=== PATIENT | male | born 1955 | race Caucasian/White ===

== ENCOUNTER 2022-06-10 09:39 | Outpatient (REF) | payer MEDICARE, SELFPAY ==
[2022-06-10 14:48] LABS: Bilirubin Negative (Negative); Blood Negative (Negative); Clarity Clear (Clear); Glucose Negative (Negative); Ketones Negative (Negative); Leukocyte Esterase Negative (Negative); Nitrite Negative (Negative); Specific Gravity 1.025 (1.005-1.025); Urobilinogen 0.2 mg/dL (Up to 0.2)
[2022-06-10 14:49] LABS: HCT 47.7 % (40.0-50.0); HGB 16.3 g/dL (13.5-17.5); MCHC 34.2 % (32.0-36.0); MCV 82 fL (80-95); MPV 9.9 fL (8.0-11.0); Platelet Count 215 10^3/uL (130-400); RBC 5.82 10^6/uL (4.36-5.78); RDW 13.3 % (11.8-14.1); RDW-SD 39.4 fL; WBC 7.84 10^3/uL (4.4-10.8)
[2022-06-10 15:23] LABS: ALT 28 U/L (16-63); AST 27 U/L (15-37); Albumin 3.6 g/dL (3.4-5.0); Alkaline Phosphatase 56 U/L (46-116); Anion Gap 10.3 mmol/L (3-11); BUN 24 mg/dL (7-18); Bilirubin, Total 0.5 mg/dL (0.2-1.0); CO2 24.7 mmol/L (21.0-32.0); CREATININE 1.3 mg/dL (0.70-1.30); Calcium 9.2 mg/dL (8.5-10.1); Calculated LDL 143 mg/dL (<100); Chloride 105 mmol/L (98-107); Cholesterol 212 mg/dL (<200); Estimated GFR 60.96 (mL/min/1.73m2); Glucose 106 mg/dL (74-106); HDL Cholesterol 50 mg/dL (40-60); Potassium 4.3 mmol/L (3.5-5.1); Sodium 140 mmol/L (136-145); Total Protein 7.4 g/dL (6.4-8.2); Triglyceride 98 mg/dL (<150)
== END 2022-06-10 09:40 | disposition home or self-care (01) ==
LOC: NCHCN 09:39
PROVIDERS: Visit Provider Family Medicine
DX: N02.8 Recurrent and persistent hematuria with other morphologic changes (principal); Z00.00 Encounter for general adult medical examination without abnormal findings; Z13.1 Encounter for screening for diabetes mellitus; Z13.220 Encounter for screening for lipoid disorders; Z86.79 Personal history of other diseases of the circulatory system; K51.90 Ulcerative colitis, unspecified, without complications; H93.19 Tinnitus, unspecified ear
CPT/HCPCS: 80053; 80061; 85027; 81003

== ENCOUNTER 2023-11-01 20:25 | Outpatient (REF) | payer MEDICARE, SELFPAY ==
[2023-11-01 16:40] LABS: ALT 29 U/L (16-63); AST 37 U/L (15-37); Albumin 3.6 g/dL (3.4-5.0); Alkaline Phosphatase 54 U/L (46-116); Anion Gap 8.1 mmol/L (3-11); BUN 24 mg/dL (7-18); Bilirubin, Total 0.83 mg/dL (0.2-1.0); CO2 25.9 mmol/L (21.0-32.0); CREATININE 1.4 mg/dL (0.70-1.30); Calcium 9.7 mg/dL (8.5-10.1); Chloride 106 mmol/L (98-107); Estimated GFR 55.43 (mL/min/1.73m2); Glucose 83 mg/dL (74-106); Potassium 4.2 mmol/L (3.5-5.1); Sodium 140 mmol/L (136-145); Total Protein 7.5 g/dL (6.4-8.2); Uric Acid 7.1 mg/dL (3.5-7.2)
[2023-11-01 17:20] LABS: Calculated LDL 85 mg/dL (<100); Cholesterol 147 mg/dL (<200); HDL Cholesterol 50 mg/dL (40-60); Triglyceride 61 mg/dL (<150)
--- OUTSIDE RECORDS SUMMARY | 2023-11-01 20:29 | XMS_ITS | Clinical Summary ---
Author Organization [facility] Address [address] [place] [address] Care Team Providers Care Talent Acquisition Specialist Name Role Phone Iesha Crowley MD Primary Care Provider [phone] Allergies No known active allergies Medications Medication Sig Dispensed Refills Start Date End Date Status balsalazide disodium (BALSALAZIDE ORAL) Take 750 mg by mouth. 3 x 750 mg three times a day Active Active Problems No known active problems Social History Tobacco Use Types Packs/Day Years Used Date Smoking Tobacco: Unknown Tobacco Cessation:Counseling Given: Not Answered Sex and Gender Information Value Date Recorded Sex Assigned at Not on file Gender Identity Male 04/08/2022 14:08 EST Sexual Orientation Not on file Obstetrics History Last Filed Vital Signs Vital Sign Reading Time Taken Comments Blood Pressure 139/79 04/26/2022 0756 EDT Pulse 93 04/26/2022 0756 EDT Temperature - - Respiratory Rate - - Oxygen Saturation - - Inhaled Oxygen Concentration - - Weight - - Height - - Body Mass Index - - Plan of Treatment Health Maintenance Due Date Last Done Comments Hepatitis C Screen 1955 RSV Immunization ( o r 60+ Years) (1 - 1-dose 60+ series) 2017 Fall Risk Screening 2022 COVID-19 Vaccine (2022-24 season) 2022 Madonna FLORES, Slade Youngblood Personal/Family Self 1955 [address] [facility] [place] [address] Madonna FLORES, Slade Youngblood Personal/Family Self 1955 [address] [place] [address] Madonna FLORES, Slade Youngblood Personal/Family Self 1955 [address] [place] [address] Madonna III, Slade Youngblood Personal/Family Self 1955 [address] [facility] [place] [address] Care Teams Talent Acquisition Specialist Relationship Specialty Start Date End Date Iesha Crowley MD [address] [place] [address] PCP - General 04/08/22
--- OUTSIDE RECORDS SUMMARY | 2023-11-01 20:29 | XMS_ITS | Encounter Summary ---
Author Organization [facility] Address [address] [place] [address] Care Team Providers Care Waste Paper Hammermill Operator Name Role Phone Iesha Crowley MD Primary Care Provider [phone] Reason for Visit * Reason Onset Date Comments Follow-up 06/14/2023 Encounter Details Date Type Department Care Team (Late st Contact Info) Description 06/14/2023 Telephone [facility] Dermatology 5th Floor [address] [id number] Devon Nunes MD [address] [place] [address], [address] [place] [address] Follow-up Social History Tobacco Use Types Packs/Day Years Used Date Smoking Tobacco: Unknown Sex and Gender Information Value Date Recorded Sex Assigned at Not on file Gender Identity Male 04/08/2022 14:08 EST Sexual Orientation Not on file documented as of this encounter Miscellaneous Notes * Telephone Encounter - Rula Castro - 06/14/2023 0927 EDT [facility] missed on 06/02/23 to next available on 09/08/23. He did speak with the nurse on 03/21/23 and was aware of the message from Dr. Nunes. He is still asking if there's anything possibly for pain relief. Please call his land-line [phone] documented in this encounter Plan of Treatment Not on file documented as of this encounter Visit Diagnoses Not on filedocumented in this encounter Care Teams Waste Paper Hammermill Operator Relationship Specialty Start Date End Date Iesha Crowley MD [address] [place] [address] PCP - General 04/08/22 documented as of this encounter
--- OUTSIDE RECORDS SUMMARY | 2023-11-01 20:29 | XMS_ITS | Encounter Summary ---
Author Organization [facility] Address [address] [place] [address] Care Team Providers Care Manager Rail Name Role Phone Iesha Crowley MD Primary Care Provider [phone] Reason for Visit * Reason Comments Wound Check nose Encounter Details Date Type Department Care Team (Late st Contact Info) Description 05/07/2022 9:15 EDT Nurse Only [facility] Dermatology 5th Floor [facility] [address] [place] [address] Nursing Team, 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 Do not let the shower stream hit the wound directly. If you bathe in a tub, the bath should be brief. Pat wound dry. Apply a thin layer of vaseline to the wound. Cover wound with a Band-Aid or a non-stick gauze pad and secure with tape. Continue doing wound care until there is no more drainage. It is an old wives??? tale that a wound heals faster if it is exposed to air and allowed to dry out. The wound will heal faster and with a better cosmetic result if it is kept moist with ointment andcovered with a bandage. Do not let the wound dry out. If the procedure required sutures, the suture line will be dark pink at first and the edges of the wound will be reddened. This will lighten up day by day and will be less tender. The suture line mayalso be firm, especially on the lip/chin area and will also fade with time. It may take up to 6-12 months for redness and firmness to fade. Numbness in the surgical area is expected. It might take 12-18 months for the feeling to return to normal. During this time, sensations of itchiness, tingling, and occasional sharp pains might be noted. These feelings are normal and will subside once the nerves have completely healed. Begin to massage the area 6 weeks after surgery. Massaging the area will help the scar soften and fade quicker. To massage, apply pressure directly and firmly over the scar with the fingertips and move lengthwise along the scar or in a circular motion. Massage the area for up to 10 minutes several times a day. About 6-8 weeks after surgery it is not uncommon to see tender 'pimple-like' bumps along the scar. This is normal as the scar continues to mature and the stitches underneath the skin begin to dissolve. Do not pick or squeeze - this will resolve on its own. Should one break open producing a small amount of drainage, apply polysporin or bacitracin ointment a few times a day until it is completely healed. CONTACT THE OFFICE If the wound becomes increasingly red, warm to touch, increased pain, drainage with a foul odor, rapid swelling of the wound, and/or if you develop a fever or chills, please call our office immediately or . documented in this encounter Progress Notes * Karthikeyan Juan MA - 05/07/2022 0915 EDT Images from the original note were not included. WOUND ASSESSMENT CC: Chief Complaint Patient presents with ??? Wound Check nose Mr. 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 SUBJECTIVE: Patient reports that he is having a hard time with bandaging and knowing that the flap is healing well. OBJECTIVE: There were no vitals taken for this visit. Wound edges: well-approximated Wound Site: swollen, pink and no signs of infection Drainage: serosanguineous, crusted sanguinous drainage Flap site: well approximated and pink PLAN: Wound cleaned: normal saline and peroxide Dressing: vaseline dressing applied Culture obtained: No MD/PAIsmael consulted Yes. Dr. Nunes consulted and shown updated image. FOLLOW UP Patient advised to return to follow-up care on 05/13/2022 as planned or sooner if concern Wound care instructions given to patient Note: I was supervised by Devon Nunes MD who was present and immediately available in the office suite. 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
--- OUTSIDE RECORDS SUMMARY | 2023-11-01 20:29 | XMS_ITS | Encounter Summary ---
Author Organization [facility] Address [address] [place] [address] Care Team Providers Care Wad Printing Machine Operator Name Role Phone Iesha Crowley MD Primary Care Provider [phone] Reason for Visit * Reason Comments Mohs Consult [facility]CO MIS Nasal tip- N o blood thinner, no valve/joint replacement. Noticed spot 8 years ago- was frozen off.Came back around 4 years ago due to COVID was not seen. Few months ago saw changes in lesion. Ref by Dr.Gary Sahu * Consult (Routine) - Receiving Office to Obtain Authorization Specialty Diagnoses / Procedures Referred By Karely corral Referred To Contact Diagnoses Melanoma in situ of nose (HCC-CMS) MISC UNKNOWN [facility] Dermatology [address] [place] [address] Referral ID Status Reason Start Date Expiration Date Visits Requested Visits Authorized [id number] Receiving Office to Obtain Authorization Urgent/[facility] 1 1 Encounter Details Date Type Department Care Team (Late st Contact Info) Description 04/23/2022 13:30 EST Initial consult [facility] Dermatology 5th Floor [address] [address] Devon Nunes MD [address] [place] [address], [facility], [address] [place] [address] 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 MOHS EVALUATION NOTE Chief Complaint Patient presents with ??? Mohs Consult [facility]CO MIS Nasal tip- No blood thinner, no valve/joint replacement. Noticed spot 8 years ago- was frozen off.Came back around 4 years ago due to COVID was not seen. Few months ago saw changes in lesion.Ref by Dr.Gary Sahu Subjective: Slade Peacock III is a 66 y.o. year old male who presents for evaluation and treatment recommendations for skin cancer. The patient was referred to us by Dr. Manuel Sahu. He notes that it first appeared about 8 years ago and was previously treated with LN2. A few years ago, it started to come back and the patient was not seen for a bit due to COVID. Surgical Risk factors: Pacemaker/ICD: none Anticoagulants: none Total joint replacements/valves: none Allergies: Patient has No Known Allergies. Immunosuppression: none Smoking status: has no history on file for tobacco use. For full Medical, Surgical, Family, and Social histories as well as Review of Systems, Medications and Allergies please see those sections of this encounter in the electronic chart which I have personally reviewed. Objective: The following data was reviewed: external note(s) from referring provider and pathology report. Examination of the affected area revealed the following: ?? An approximately 1.2 cm x 0.6 cm well defined brown, patch located on the left nasal tip. 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 The diagnosis, etiology, prognosis and treatment options were reviewed. ?? Due to the need for a high cure rate and optimum functional and aesthetic outcome, I feel that Mohs surgery is indicated. The risks of Mohs surgery and potential reconstructive surgery, including:bleeding, infection, scarring, recurrence, injury to functionally or cosmetically important nerve structures and an unsatisfactory cosmetic result were reviewed. Mr. Madonna FLORES understands that following Mohs surgery an operative repair may be required and may involve substantial suturing. We have jointly planned to have me repair the wound at the day of surgery if needed. Discussed repair options include FTSG and nasolabial interpolation flap and pictures of the procedures shown to patient. Carlos Alberto delaney understands that it typically takes 4 to 6 months for wounds to heal before a decision can be made about the final cosmetic result and that in some cases a revision may be necessary to optimize theoutcome. The patient was given an opportunity to ask questions, and I believe that all of his questions were answered satisfactorily. The patient will be scheduled for surgery on April 26, 2022. Note: Discussed with patient that although the biopsy demonstrated melanoma in situ it was only a partial sample of a larger lesion and a deeper invasive component may be present. Patient advised theresidual melanocytic lesion would be sent to pathology for complete histologic evaluation for staging purposes. In the event a deeper invasive melanoma is identified then further excision, and / or testing may be recommended as directed by NCCN guidelines. and Discussed that reconstruction with a nasolabial interpolation flap may be needed for optimal cosmetic outcome. Drake French MD Attestation statement: I saw and examined the patient with the resident / fellow. I agree with the findings and plan of care documented in the resident's / fellow's note. 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 Medication Sig Dispensed Refills Start Date End Date balsalazide disodium (BALSALAZIDE ORAL) Take 750 mg by mouth. 3 x 750 mg three times a day added in this encounter Care Teams Wad Printing Machine Operator Relationship Specialty Start Date End Date Iesha Crowley MD [address] [place] [address] PCP - General 04/08/22 documented as of this encounter
--- OUTSIDE RECORDS SUMMARY | 2023-11-01 20:29 | XMS_ITS | Encounter Summary ---
Author Organization [facility] Address [address] [place] [address] Care Team Providers Care Casino Porter Name Role Phone Iesha Crowley MD Primary Care Provider [phone] Reason for Visit * Reason Onset Date Comments Wound Care 05/06/2022 Encounter Details Date Type Department Care Team (Late st Contact Info) Description 05/06/2022 Telephone [facility] Dermatology 3rd Floor [facility] [address] [place], [place] [id number] Devon Nunes MD [address] [facility], [address] [place] [address] Wound Care Social History Tobacco Use Types Packs/Day Years Used Date Smoking Tobacco: Unknown Sex and Gender Information Value Date Recorded Sex Assigned at Not on file Gender Identity Male 04/08/2022 14:08 EST Sexual Orientation Not on file documented as of this encounter Miscellaneous Notes * Telephone Encounter - Georgia Helm RN - 05/06/2022 0949 EDT S/P MOHS of melanoma in-situ left nasal tip with nasolabial interpolation flap 04/26/22 with Devon Nunes MD Patient reports he has been nervous about whether this surgery is healing the way it is supposed to. He reports the tip of his nose is light brown where the flap and the graft meet. No pain, increased swelling or redness. Patient scheduled for a wound check 05/08/22 with Nursing Team MOHS . MEGHAN AMAYA 05/06/2022 10:00 * Telephone Encounter - Rula Miller - 05/06/2022 0937 EDT Patient calling regarding post Mohs on 04/26/22 to remove MIS on nose. Patient is inquiring if it ishealing properly. Patient reports a graft was used. Please advise. documented in this encounter Plan of Treatment Not on file documented as of this encounter Visit Diagnoses Not on filedocumented in this encounter Care Teams Casino Porter Relationship Specialty Start Date End Date Iesha Crowley MD [address] [place] [address] PCP - General 04/08/22 documented as of this encounter
--- OUTSIDE RECORDS SUMMARY | 2023-11-01 20:29 | XMS_ITS | Encounter Summary ---
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 You may shower or bathe after 24 hours. Remove the bandage and replace it after the showering (see below). DISCOMFORT: Expect discomfort. Take acetaminophen (for example, TylenolTM) as directed. If this does not provide sufficient relief, take ibuprofen (AdvilTM), up to 600 mg every 8 hours). You may takeboth of these together or alternate them. We do not routinely prescribe narcotic pain medications. If pain is severe and not relieved by the above measures, please call the office. BLEEDING: Some blood seeping into the bandage is NORMAL. If the bleeding soaks through the dressing, remove the dressing, and apply firm, steady pressure with a moist clean wash cloth for fifteen minutes. If the bleeding stops, redress the wound. If not, call our office. ACTIVITY: No strenuous activity for the first 48 hours after surgery. Keep your head elevated. APPEARANCE: Swelling and bruising are normal. Some redness is normal, but the wound should not be red, hot and tender. If the wound rapidly swells up or becomes increasingly inflamed, warm, or drainspus, please call our office. WOUND CARE: Change the dressing daily and/or when it becomes wet. Wash hands with soap and water and clean the wound with soap and warm water. You may use 3% hydrogen peroxide and a cotton swab to loosen and remove the crusting from a wound with stitches. Apply a thin layer of sterile petroleum jelly over the wound. Cover with Telfa or similar non-stick dressing or bandage Tape in place with Hypafix or paper tape Mild tenderness, pinpoint bleeding and a thin mucous-like discharge are normal. Keep all sutured wounds covered daily for a full 7 days. Open wounds will need to be covered for much longer. If you have sutures that require removal, you will receive specific instructions regarding when andwhere to have them removed. If you have dissolving sutures they will fall apart and be gone in 10-14 days. OPEN WOUND HEALING (Wound without sutures): If your wound was left open to heal on its own, approximately one week after surgery a pink/red halo will form around the outside of the wound; this is newskin. The center of the wound will appear yellowish white and produce some drainage. The pink halo will slowly migrate toward the center of the wound until the wound is covered with new shiny pink skin. There will be a mucus-like drainage on the dressing and there will be no more drainage when the wound is completely healed. WHEN TO CONTACT YOUR PHYSICIAN: Contact you physician if your wound becomes increasingly sore, tender, red, or warm, or if the surgery site rapidly swells. Please call our office [phone] or if you have any questions or concerns. documented in this encounter Progress Notes * Devon Nunes MD - 05/18/2022 1400 EDT Images from the original note were not included. FLAP TAKEDOWN PROCEDURE NOTE PATIENT INFORMATION: Slade Peacock III : MRN: [id number] SURGEON: Devon Nunes MD TAXICAB STARTER: Angelika Stokes PA-C Preoperative Diagnosis: Mature Pedicle Flap Preoperative Procedure: Flap Division and Inset Mr. Madonna FLORES presents for a staged flap takedown procedure related to the interpolated nasolabial flap inset procedure performed on 04/26/2022. The indication, risks, benefits and alternatives to this procedure were provided in writing and were discussed in detail with the patient and all questions were answered. The patient had no contraindications to surgery with local anesthesia. Informed consent was obtained in writing. PROCEDURE Patient position: supine Anesthesia: 1% lidocaine with epinephrine 1:100,000 local infiltration Prep: Povodine Iodine The patient was brought to the operative suite. Vital signs were obtained & placed in the chart. The patient was placed in the recumbent position on the operating table. The pedicle flap extending from the cheek to the nose was identified and cleansed with Povidine. The flap was noted to be fully viable without evidence of infection. Sterile drapes were applied. Flap viability was confirmed by capillary refill. The flap was divided proximally and distally with a #15 scalpel blade. The flap was then thinned to the superficial subcutis by sharp excision at both the donor and recipient sites, and all accumulated granulation tissue was completely removed. The proximal stump was trimmed to si ze and inset slightly. The flap was sutured flush with the surrounding skin using 6.0 Monocryl (poliglecaprone 25) buried interrupted sutures. The epidermis was then approximated with 6.0 Prolene (polypropylene). The wound edges were cleansed with peroxide and dressed with petrolatum, a non-adherent gauze pad and Hypafix?? tape. Verbal and written wound care instructions were given. The patient tolerated the procedure well and left the operating suite in excellent condition. Final Diagnosis: Mature Pedicle Flap Final Procedure: Pedicle Flap Division and Inset Blood Loss: minimal Operative Time: 30 minutes Complications: None Note: None Follow up: Patient will return for follow up in approximately 1 week for suture removal then Mohs follow up in three months. The attending physician performed the procedure. 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
--- OUTSIDE RECORDS SUMMARY | 2023-11-01 20:29 | XMS_ITS | Encounter Summary ---
Author Organization [facility] Address [address] [place] [address] Care Team Providers Care Foot Cutter Name Role Phone Iesha Crowley MD Primary Care Provider [phone] Reason for Visit * Reason Onset Date Comments Appointment Related 06/17/2022 Encounter Details Date Type Department Care Team (Late st Contact Info) Description 06/17/2022 Telephone [facility] Dermatology 5th Floor [facility] [address], [place] [address] Devon Nunes MD [address] [facility], [address] 5 [place] [address] Appointment Related Social History Tobacco Use Types Packs/Day Years Used Date Smoking Tobacco: Unknown Sex and Gender Information Value Date Recorded Sex Assigned at Not on file Gender Identity Male 04/08/2022 14:08 EST Sexual Orientation Not on file documented as of this encounter Miscellaneous Notes * Telephone Encounter - Karthikeyan Juan MA - 06/17/2022 0936 EDT Called and spoke to pt- checking in to see how he was healing and to schedule a 3 month wwith . Pt stated he was feeling some tightness and tingling still in the repair site. Informed pt that healing process can take up to 12-18 months. Tightness can occur - did recommend massaging the area to help breakdown/soften scar tissue. In addition informed pt that tingling, can come and go but will get better as area continues to heal. Pt is scheuled for follow-up in 09/02/22 @ 8 am KARTHIKEYAN JUAN MA 06/17/2022 9:38 documented in this encounter Plan of Treatment Not on file documented as of this encounter Visit Diagnoses Not on filedocumented in this encounter Care Teams Foot Cutter Relationship Specialty Start Date End Date Iesha Crowley MD [address] [place] [address] PCP - General 04/08/22 documented as of this encounter
--- OUTSIDE RECORDS SUMMARY | 2023-11-01 20:29 | XMS_ITS | Continuity of Care Document ---
Author Organization [facility] Address [address] [place] [address] Assessment No assessment recorded. Plan of Treatment Reminders Order Date Submit Date Provider Last Modified By Organization Details Last Modified Time Details Appointments Nurse Visit 20 2023 07:30A M Not available Not available Not available Medicare Wellness 40 (Subs) 2023 02:00P M Not available Not available Not available Lab lipid panel, serum [address] [facility] (Registration ), [address] [place] [address] [place], [address], 11/01/2023 14:56:22 CMP, serum or plasma 2023 024 [facility] (Registration ), [address] [place] [address] [place], [address], 11/01/2023 16:44:50 uric acid, serum or plasma [address] [facility] (Registration ), [address] [place] [address] [place], [address], 11/01/2023 14:56:39 Referral None recorded. Procedures None recorded. Surgeries None recorded. Imaging None recorded. Medication Orders None recorded. Patient TargetsNo targets recorded. Patient InstructionsNo instructions recorded. 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 Not Available [facility] 3 05:15:32 History of cardiova scular disease 688183162 Active 2022 Problem Code: Z86.79; Problem Code Type: ICD-10; Not Available [facility] 3 05:15:32 Right bundle branch block 86239001 Active 2022 Problem Code: I45.10; Problem Code Type: ICD-10; Not Available [facility] 3 05:15:32 At risk - finding 196639258 Active 2022 Problem Code: Z91.89; Problem Code Type: ICD-10; Not Available [facility] 3 05:15:32 Internal hordeolu m 026000028 Active 2022 Problem Code: H00.029; Problem Code Type: ICD-10; Not Available [facility] 3 05:15:32 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 21453519 Active 2022 Problem Code: C43.31; Problem Code Type: ICD-10; Not Available [facility] 3 05:15:33 Hyperlip idemia screenin g Completed 202208/10/2022 Problem Code: Z13.220; Problem Code Type: ICD-10; Not Available [facility] 3 05:15:33 Diabetes mellitus screenin g Completed 202206/11/2022 Problem Code: Z13.1; Problem Code Type: ICD-10; Not Available [facility] 3 05:15:33 Tinnitus 82649604 Active 2022 Problem Code: H93.19; Problem Code Type: ICD-10; Not Available [facility] 3 05:15:33 Ulcerati ve colitis 73965792 Active 2022 Problem Code: K51.90; Problem Code Type: ICD-10; Not Available [facility] 3 05:15:33 Adult health examinat ion Active 2022 Problem Code: Z00.00; Problem Code Type: ICD-10; Not Available [facility] 3 05:15:33 Hypercho lesterol emia 20410902 Active [address], [facility] [address] , [facility] 4 16:57:04 Chronic kidney disease stage 3A 272534799 Active [address], [facility] [address] , [facility] 4 16:58:20 Basal cell carcinom a of skin 199002282 Active 2023 [facility] [address], [facility] [address] , [facility] 4 13:40:06 Problem Notes None recorded. Medical Equipment None Reported. Allergies Allergen ID Allergen Name Allergen Category Reaction Reaction Severity Criticality Documentation Date Start Date Code Code System Note Provider Name and Address Organization Details Recorded Time fentanyl medicatio n nausea moderate Not available 12/24/20222022 4337 RxNorm nause a and vomit ing Aller gyRea ction : 'naus ea and vomit ing'; Aller gyCod e: '2451 34'; Aller gyNam e: 'FENT ANYL' ; Aller gyCon ceptT ype: 'RX Norm' ; Not Available [facility] 3 16:11:34 Medications Name Sig Start Date Stop Date Status Note LastModified by Organization Details LastModified Time sildenafil 50 mg tablet Take 1 TO 2 tabletS by mouth once DAILY as needed prior to intercour se active Not Available Not Available No t Available fluorouraci l 5 % topical cream active Not Available Not Available Not Available amoxicillin 500 mg tablet active Not Available Not Available Not Available balsalazide 750 mg capsule TAKE THREE CAPSULES BY MOUTH THREE TIMES A DAY active Not Available Not Available No t Available tobramycin 0.3 %-dexametha sone 0.1 % eye drops,suspe nsion Apply 1 drop into both eyes three times a day for 5-7 days 06/01 completed Not Available Not Available Not Available rosuvastati n 5 mg tablet TAKE ONE TABLET BY MOUTH EVERY DAY active Not Available Not Available No t Available Vitals None Recorded Social History None recorded. Functional Status None recorded. Mental Status None recorded. Family History Nothing Reported Notes:*Problem: Father: mare le, COPD, OA knees, Afib Mother: hip fracture 2020 uses walker, generalize OA Sister1: OA, shoulder replacement surgery Sister2: generalized OA 1Son: healthy, no children Medical History No medical history recorded. Immunizations Vaccine Type Date Status Provider Name and Address Organization Details Recorded Time Pneumococcal conjugate PCV20, polysaccharide ESM693 conjugate, adjuvant, PF 07/05/2023 completed MD [address], [facility] [id number] [place] [address] 07/05/2023 16:57:03 Td (adult), 2 Lf tetanus toxoid, preservative free, adsorbed 07/05/2023 completed MD [address], [facility] [phone] [place] [address] 07/05/2023 16:57:03 COVID-19, mRNA, LNP-S, PF, 30 mcg/0.3 mL dose 04/15/2020 completed Not Available [facility] 12/24/2022 04:04:49 COVID-19, mRNA, LNP-S, PF, 30 mcg/0.3 mL dose 05/09/2020 completed Not Available [facility] 12/24/2022 04:04:50 Past Encounters Encounter ID Performer Location Encounter Start Date Encounter Closed Date Diagnosis/Indication Diagnosis SNOMED-CT Code Diagnosis ICD10 Code [id number] Shanel Ricks LPN [address] [address] 11/01/2023 07:19:14 11/01/2023 08:17:25 Hypercholesterolemia 96648224 E78.00 Chronic ki dney disease stage 3A 563950006 N18.31 History of gout 65921824 4 Z87.39 Health Concerns Section Related Observation LastModified by Organization Detai ls LastModified Time None Recorded Concern Status LastModified by Organization Details LastModified Time None Recorded Payers Encounter Date Sequence Insurance Name Policy Number Policy Faust Covered Member ID Faust Member ID Guarantor Name 11/01/2023 1 [place] [employer] Slade Peacock [id number] 1 Slade Peacock 11/01/2023 2 [employer] - [facility] [employer] - PLAN F (MEDICARE SUPPLEMENT) Slade Peacock [id number] Slade Peacock
--- OUTSIDE RECORDS SUMMARY | 2023-11-01 20:29 | XMS_ITS | Encounter Summary ---
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); Visit for suture removal Social History Tobacco Use Types Packs/Day Years Used Date Smoking Tobacco: Unknown Tobacco Cessation:Counseling Given: Not Answered Sex and Gender Information Value Date Recorded Sex Assigned at Not on file Gender Identity Male 04/08/2022 14:08 EST Sexual Orientation Not on file documented as of this encounter Patient Instructions * Patient Instructions* Karthikeyan Juan MA - 05/03/2022 8:45 EDT [facility] DEPARTMENT OF DERMATOLOGY Wound Care Instructions [...] Progress Notes * Karthikeyan Juan MA - 05/03/2022 4835 EDT SUTURE REMOVAL NOTE CC: SUTURE REMOVAL Mr. 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 SUBJECTIVE: Patient reports tender to touch and itching OBJECTIVE: There were no vitals taken for this visit. Wound edges: well-approximated Wound Site: sloughing, pink and no signs of infection Drainage: serosanguineous Flap site: well approximated and pink PLAN: Wound cleansed from center outward with chlorohexidine (hibiclens, chloraprep) Sutures: all sutures removed Dressing: mupirocin dressing applied FOLLOW UP Patient advised to return to follow-up care on 05/18/2022 as planned or sooner if concern Post suture removal wound care instructions given to patient Note: I was supervised by Devon Nunes MD who was present and immediately available in the office suite. 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
--- OUTSIDE RECORDS SUMMARY | 2023-11-01 20:29 | XMS_ITS | Encounter Summary ---
Author Organization [facility] Address [address] [place] [address] Care Team Providers Care Paint Roller Covermaker Name Role Phone Iesha Crowley MD Primary Care Provider [phone] Reason for Visit * Reason Onset Date Comments Appointment Related 04/28/2022 Encounter Details Date Type Department Care Team (Late st Contact Info) Description 04/28/2022 Telephone [facility] Dermatology 3rd Floor [facility] [address] [place], [place] [address] Devon Nunes MD [address] [facility], [address] [place] [address] Appointment Related Social History Tobacco Use Types Packs/Day Years Used Date Smoking Tobacco: Unknown Sex and Gender Information Value Date Recorded Sex Assigned at Not on file Gender Identity Male 04/08/2022 14:08 EST Sexual Orientation Not on file documented as of this encounter Miscellaneous Notes * Telephone Encounter - George Delcid RN - 04/28/2022 1048 EDT S/P melanoma in situ of the left nasal tip with nasolabial interpolation flap on 04/23/22 by Devon Nunes MD and Rosas Muir MD. Patient states that the flap has progressed from appearing small and trim to red and swollen. No increased pain, just some discomfort. No drainage. No fever or chills. States that wound does not appear infected. Patient does not have MyChart and states that he would struggle to download MyChart and send a photo. He is unable to make an appointment today due to poor driving conditions - he is not currently inthe area. Scheduled for a wound check with the nursing team tomorrow 04/29 @ 0915. GEORGE DELCID RN 04/28/2022 10:56 * Telephone Encounter - Tami Lund - 04/28/2022 1045 EDT Patient is calling regarding his skin flap surgery on 04/26/22. Patient states it looked smaller when he left, and now it looks big and red. Patient would just like to know if this is normal. Please advise. documented in this encounter Plan of Treatment Not on file documented as of this encounter Visit Diagnoses Not on filedocumented in this encounter Care Teams Paint Roller Covermaker Relationship Specialty Start Date End Date Iesha Crowley MD [address] [place] [address] PCP - General 04/08/22 documented as of this encounter
--- OUTSIDE RECORDS SUMMARY | 2023-11-01 20:29 | XMS_ITS | Encounter Summary ---
Author Organization [facility] Address [address] [place] [address] Care Team Providers Care Photogrammetric Stereo Compiler Name Role Phone Iesha Crowley MD Primary Care Provider [phone] Reason for Visit * Reason Comments Wound Check nose Encounter Details Date Type Department Care Team (Late st Contact Info) Description 05/13/2022 8:45 EDT Nurse Only [facility] Dermatology 5th Floor [facility] [address] [place] [address] Nursing Team, [facility] Dermatology Mohs Melanoma in situ of nose [...] * Patient Instructions* Karthikeyan Juan MA - 05/13/2022 8:45 EDT [facility] DEPARTMENT OF DERMATOLOGY Wound Care Instructions [...] Progress Notes * Karthikeyan Juan MA - 05/13/2022 8726 EDT Images from the original note were [...] advised to return to follow-up care on 05/17/2022 as planned or sooner if concern Wound care instructions given to patient Note: I was supervised by Devon Nunes MD who was present and immediately available in the office suite. 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
--- OUTSIDE RECORDS SUMMARY | 2023-11-01 20:29 | XMS_ITS | Encounter Summary ---
Author Organization [facility] Address [address] [place] [address] Care Team Providers Care Financial Recording Clerk Name Role Phone Iesha Crowley MD Primary Care Provider [phone] Reason for Visit * Reason Comments Follow-up 3 month f/u MIS flap take down. Pt states some discomfort where root of flap was. Some tightness and aching in that area. Encounter Details Date Type Department Care Team (Late st Contact Info) Description 09/02/2022 8:00 EDT Office Visit [facility] Dermatology 5th Floor [address] [id number] Devon Nunes MD 111 [facility], [address] [place] [phone] History of melanoma in situ (Primary Dx) Social History Tobacco Use Types Packs/Day Years Used Date Smoking Tobacco: Unknown Tobacco Cessation:Counseling Given: Not Answered Sex and Gender Information Value Date Recorded Sex Assigned at Not on file Gender Identity Male 04/08/2022 14:08 EST Sexual Orientation Not on file documented as of this encounter Progress Notes * Devon Nunes MD - 09/02/2022 0800 EDT Mohs Follow Up Note Chief Complaint Patient presents with ??? Follow-up 3 month f/u MIS flap take down. Pt states some discomfort where root of flap was. Some tightness and aching in that area. 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 ?? He notes his nose has healed well and he is pleased. ?? He has no additional concerns he wishes to discuss today. For full Medical, Surgical, Family, and Social histories as well as Review of Systems, Medications and Allergies please see those sections of this encounter in the electronic chart which I have personally reviewed. OBJECTIVE FOCUSED SKIN EXAM: A focused cutaneous examination of the nose and left cheek is performed. The exam was notable for the following findings: ?? Well healed scar on the left nasal tip and medial cheek without nodularity, ulceration or other concerning signs of recurrence. ASSESSMENT ??? Well healed with no evidence of recurrence following Mohs surgery for melanoma in situ (MIS) onthe left nasal tip. PLAN ?? SUN PROTECTION AND SELF EXAMS: Patient advised that individuals with a history of skin cancer have an increased risk for development of new skin cancers. Recommended regular self skin examinationsand to call our office for any new, changing or ugly duckling skin lesions prior to next appointment. The importance of sun avoidance and sun protection with clothing and broad spectrum sunscreens (SPF 30 or above) for primary prevention of new skin cancers reviewed. ?? Patient will return for a skin check next spring. He know to braydon for a sooner appointment shouldhe notice any new or chenging skin lesons of concern.. Devon Nunes MD 09/02/2022 8:45 documented in this encounter Plan of Treatment Not on file documented as of this encounter Visit Diagnoses Diagnosis History of melanoma in situ- Primary Personal history of malignant melanoma of skin documented in this encounter Care Teams Financial Recording Clerk Relationship Specialty Start Date End Date Iesha Crowley MD [address] [place] [address] PCP - General 04/08/22 documented as of this encounter
--- OUTSIDE RECORDS SUMMARY | 2023-11-01 20:29 | XMS_ITS | Referral Summary ---
Author Organization [facility] Address [address] [place] [address] Care Team Providers Care Digital Intern Name Role Phone Iesha Crowley MD Primary Care Provider [phone] Allergies No known active allergies Medications Medication [...] 14:08 EST Sexual Orientation Not on file Last Filed Vital Signs Vital Sign Reading Time Taken Comments Blood Pressure 139/79 04/26/2022 0756 EDT Pulse 93 04/26/2022 0756 EDT Temperature - - Respiratory Rate - - Oxygen Saturation - - Inhaled Oxygen Concentration - - Weight - - Height - - Body Mass Index - - Plan of Treatment Not on file Madonna III, Slade Youngblood Personal/Family Self 1955 [address] [facility] [place] [address] Madonna III, Slade Youngblood Personal/Family Self 1955 [address] [facility] [place] [address] Madonna III, Slade Youngblood Personal/Family Self 1955 [address] [place] [address] Peacock III, Slade Youngblood Personal/Family Self 1955 [address] [place] [address] Care Teams Digital Intern Relationship Specialty Start Date End Date Iesha Crowley MD [address] [place] [address] PCP - General 04/08/22
--- OUTSIDE RECORDS SUMMARY | 2023-11-01 20:29 | XMS_ITS | Encounter Summary ---
Author Organization [facility] Address [address] [place] [address] Care Team Providers Care Feedlot Manager Name Role Phone Iesha Crowley MD Primary Care Provider [phone] Reason for Visit * Reason Onset Date Comments Appointment Related 05/31/2022 Encounter Details Date Type Department Care Team (Late st Contact Info) Description 05/31/2022 Telephone [facility] Dermatology 3rd Floor [facility] [address] [place], [place] [phone] Devon Nunes MD 111 [facility], [address] [place] [address] Appointment Related Social History Tobacco Use Types Packs/Day Years Used Date Smoking Tobacco: Unknown Sex and Gender Information Value Date Recorded Sex Assigned at Not on file Gender Identity Male 04/08/2022 14:08 EST Sexual Orientation Not on file documented as of this encounter Miscellaneous Notes * Telephone Encounter - George Delcid RN - 06/08/2022 0853 EDT Called and spoke with Bridgette. Patient had given permission for Dermatology staff to relay a messageto Bridgette. Advised that, per Devon Nunes MD: Nothing more to add really than reassurance. Time is polanco. Usually takes 4 to 6 months for everything to settle out. Massage can help and probably more importantly it will give him a sense that he iscontributing to his recovery. Bridgette asked about use of Vitamin E oil for reducing the appearance of a scar. Advised that the dermatologists generally state that while the effectiveness of Vitamin E oil in fading a scar has not been strongly proven, it is not harmful. If he has it on hand, he may apply it to the scar, such as during massage. Patient may call the dermatology office back with any further questions. GEORGE DELCID RN 06/08/2022 8:57 * Telephone Encounter - George Delcid RN - 06/08/2022 0811 EDT Mr.??Slade Peacock III??is status post MOHS of melanoma in situ on the left nasal tip with a nasolabial interpolation flap repair on 04/26/2022 by Devon Nunes MD. He is also status post flap takedown of a mature pedicle flap on 05/18/22 by Devon Nunes MD and Angelika Stokes PA-C. Patient called with concerns and questions related to tightness and discomfort just to the left of the scar. Reports that the site is coming along very well from a cosmetic standpoint. Endorses a bit of redness. Scar is firm but not tender to touch. No swelling. No bruising. No drainage. No feveror chills. He is not concerned about infection. He cannot send a picture through [employer] Advised that, although difficult to assess without a photo, it is likely that tightness and discomfort will gradually resolve as the skin heals and massage is performed beginning 6 weeks post-op. Patient re-educated on massage instructions. It is possible that absorbable sutures below the surface of the skin are contributing to this tight sensation. He should monitor the site over the next week or so and report ongoing concerns to Dermatology after that point. Will consult Devon Nunes MD and Angelika Stokes PA-C for additional recommendations. GEORGE DELCID RN 06/08/2022 8:28 * Telephone Encounter - Tami Lund - 06/08/2022 0809 EDT Patient is calling regarding his nurse visit two weeks ago. Patient states that he has a couple questions he would like to ask. Please advise. * Telephone Encounter - Anya Barrera - 05/31/2022 0918 EDT Patient called looking for a 3 month f/u visit with from 05/18/22 appt.. I could not find anything. Please advise. documented in this encounter Plan of Treatment Not on file documented as of this encounter Visit Diagnoses Not on filedocumented in this encounter Care Teams Feedlot Manager Relationship Specialty Start Date End Date Iesha Crowley MD [address] [place] [address] PCP - General 04/08/22 documented as of this encounter
--- OUTSIDE RECORDS SUMMARY | 2023-11-01 20:29 | XMS_ITS | Encounter Summary ---
Author Organization [facility] Address [address] [place] [address] Care Team Providers Care Cotton Program Technician Name Role Phone Iesha Crowley MD Primary Care Provider [phone] Reason for Visit * Reason Comments Suture / Staple Removal nose Encounter Details Date Type Department Care Team (Late st Contact Info) Description 05/25/2022 8:45 EDT Nurse Only [facility] 5th Floor [facility] [address] [place] [address] Nursing Team, [facility] Dermatology Mohs Melanoma in situ of [...] this encounter Patient Instructions * Patient Instructions* George Delcid RN - 05/25/2022 8:45 EDT DERMATOLOGY - WOUND CARE INSTRUCTIONS-Steri Strips Wash wound daily with soap and water Pat Dry Do not apply any oils, lotions or sunscreens to the area while the steri strips are on Once these fall off you may resume your normal skin care routine If the procedure requires sutures, the suture line will be dark pink at first and the edges of the wound will be reddened. This will lighten up day by day and will be less tender. Massaging the area will help the scar soften and fade quicker. Begin to massage the area 6 weeks after surgery. To massage apply pressure directly and firmly over the scar with the fingertips and move lengthwise along the scar. Massage the area for a few minutes several times a day. About 6-8 weeks after surgery it is not uncommon to see tender 'pimple-like' bumps along the scar. This is normal as the scar continues to mature and the stitches underneath the skin begin to dissolve. Do not pick or squeeze-- this will resolve on its own. Should one break open producing a small amount of drainage, apply polysporin or bacitracin ointment a few times a day until it is completely healed. Numbness in the surgical area is expected. It might take 12-18 months for the feeling to return to normal. During this time sensations of itchiness, tingling and occasional sharp pains might be noted. These feelings are normal and will subside once the nerves have completely healed The Skin Cancer Foundation recommends using a broad spectrum (UVA/UVB) sunscreen with an SPF of 15 or higher every day. For extended outdoor activity, use a water-resistant, broad spectrum (UVA/UVB) sunscreen with an SPF of 30 or higher. CONTACT THE OFFICE: If the wound becomes increasingly red, warm to touch, increased pain, drainage with a foul odor, rapid swelling of the wound and/or if you develop a fever or chills, please call our office immediately or . Recommendations for Sun Protection Ultraviolet (UV) radiation is a known carcinogen (cancer-causing agent) and is primarily responsible for most skin cancers, including Basal Cell Carcinoma, Squamous Cell Carcinoma, and many Melanomas. UV radiation also rapidly ages the skin, leading to wrinkles, uneven color, and poor texture. Minimizing UV exposure has been shown in multiple studies to decrease the likelihood of developing cancers and pre-cancers of the skin, as well as improve overall appearance. To minimize UV exposure: 1) Avoid exposure to sunlight during the middle of the day (10am to 4pm). Seek shade when outside during these hours. Limit outdoor activities to release coordinator and/or evening hours when the sunlight is less intense. Remember that UV is reflected from water and snow, and can pass through window glass. It is still possible to get burned during cloudy weather and in the winter months. You can check the forecast for the UV Index in your area at most weather sites online. If the UV index is 3 or higher, sun protection/avoidance is recommended. 2) Wear protective clothing. Hats with wide brims that cover the ears and neck, sunglasses (sun exposure increases your risk for cataracts), long-sleeved shirts, long pants, and closed-top shoes offer good protection. Many makers of outdoor clothing test their fabrics for UV Protection Factor (UPF), which is a guide to the level of protection a particular item of clothing should provide. In general, loose weaves (Cotton) and microsoft dynamics ax consultant-colored fabrics offer less protection than tighter weaves or darker/thicker fabrics. It is possible to get a sunburn through clothing, especially if it is wet. 3) Use sunscreen on exposed areas. Choose a sunscreen that has a Sun Protection Factor (SPF) of 30+or higher. Apply the sunscreen generously (so much that you can barely rub it in) to exposed areas 30 minutes before sun exposure. Reapply every 2-3 hours, especially if you are in water or sweating.If you tend to break out from sunscreen, choose a sunscreen designed for Sensitive Skin and/or one with physical blocking agents, such as Zinc Oxide and Titanium Dioxide. For vigorous activity, look for Sport sunscreens, which are resistant to sweating. 4) Avoid artificial sources of UV, such as tanning beds or sun lamps. The UV emitted by these devices is just as damaging, if not more so, than natural sunlight. There is a well-documented increase in the incidence of all common skin cancers in frequent tanning bed users. Other considerations: Vitamin D: Exposure to UV light is one of the ways your body gets Vitamin D, a necessary nutrient. Other sources are from the diet and/or dietary supplements. If you are actively avoiding the sun, itmay be advisable to discuss Vitamin D supplementation with your Primary Care Provider (PCP). In general, taking a supplement of 1,000 to 2,000 International Units (IU) of Vitamin D3 is safe and well-tolerated in individuals who get minimal sun exposure and have normal kidney function. However, moreor less Vitamin D may be recommended, depending on your individual needs, and the use of such supplements should be discussed with your PCP. For more information about sun protection and skin cancer: www.skincancer.org Recommended sunscreens: Chemical sunscreen Neutrogena Ultra Sheer Dry Touch (helioplex) Aveeno (same sunscreen as in Neutrogena) Coppertone Sport La Hina-Posay Anthelios (mexoryl -good UVA and UVB) Vichy (mexoryl - available in Mandeep) Gel formulations good for hair bearing skin Bullfrog Alcohol based - goes on quickly and good for skin with hair Solbar Physical sunblock good for sensitive skin (titanium dioxide and zinc oxide chemical/fragrance free) Blue Lizard sensitive COTZ TiZO (comes in tinted form) Neutrogena pure and free baby or sensitive Recommended sun protection clothing websites www.sunprecautions.com www.coolibar.[employer] www.Geosho www.NumberPicture.[employer] documented in this encounter Progress Notes * George Delcid RN - 05/25/2022 0845 EDT SUTURE REMOVAL NOTE CC: SUTURE REMOVAL Mr. 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 He is also status post flap takedownof a mature pedicle flap on 05/18/22 by Devon Nunes MD and Angelika Stokes PA-C. SUBJECTIVE: Patient reports tender to touch. OBJECTIVE: There were no vitals taken for this visit. Wound edges: well-approximated Wound Site: crusting, pink and no signs of infection Drainage: none - brown and red crusting Beach site: well approximated and pink Flap site: well approximated and pink PLAN: Wound cleansed from center outward with normal saline and chlorohexidine (hibiclens, chloraprep) Sutures: all sutures removed Dressing: steristrips applied to slightly open skin and remaining healed skin left open to air FOLLOW UP Patient advised at surgery appointment on 05/18/22 to return for a MOHS follow-up in [address] Nunes' chief medical technologist regarding scheduling. Post suture removal wound care instructions given to patient Note: I was supervised by Devon Nunes MD who was present and immediately available in the office suite. 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
--- OUTSIDE RECORDS SUMMARY | 2023-11-01 20:29 | XMS_ITS | Encounter Summary ---
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 - AM ONLY Procedures PA ADJ TISS XFER LID,NOS,EAR <10 SQCM PA ADJ TISS XFER ANY AREA,30.1-60 SQCM PA SPLIT GRFT,HEAD,FAC,HAND,FEET <100 SQCM PA SPLIT GRFT,HEAD,FAC,HAND,FEET EA 100 SQCM PA FULL THICK GRFT NOS,EAR,LID <20 SQCM PA FULL THICK GRFT NOS,EAR,LID ADD 20SQ PA FORM SKIN PEDICLE FLAP LID,EAR,NOSE PA COMPOSITE SKIN GRAFT PA MOHS, 1 STAGE, HEAD/NECK/HAND/FEET/GENTI AL MOHS [facility] D[facility]at[facility] [address] [place] [id number] Devon Nunes MD [address] [facility], [address] [place] [address] Referral ID Status Reason Start Date Expiration Date V isits Requested Visits Authorized [id number] Authorized 04/26/2022 1 1 Encounter Details Date Type Department Care Team (Late st Contact Info) Description 04/26/2022 8:15 EDT Office Visit [facility] Dermatology 5th Floor [facility] [address], [place] [id number] Devon Nunes MD [address] [facility], [address] [place] [address] 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) Social History Tobacco Use Types Packs/Day Years Used Date Smoking Tobacco: Unknown Tobacco Cessation:Counseling Given: Not Answered Sex and Gender Information Value Date Recorded Sex Assigned at Not on file Gender Identity Male 04/08/2022 14:08 EST Sexual Orientation Not on file documented as of this encounter Last Filed Vital Signs Vital Sign Reading Time Taken Comments Blood Pressure 139/79 04/26/2022 0756 EDT Pulse 93 04/26/2022 0756 EDT Temperature - - Respiratory Rate - - Oxygen Saturation - - Inhaled Oxygen Concentration - - Weight - - Height - - Body Mass Index - - documented in this encounter Patient Instructions * Patient Instructions* Rosas Muir MD - 04/26/2022 8:15 EDT WOUND CARE INSTRUCTIONS FOR SKIN SURGERY [...] site rapidly swells. Please call our office [phone] or if you have any questions or concerns. documented in this encounter Progress Notes * Devon Nunes MD - 04/26/2022 0815 EDT Images from the original note were not included. MOHS SURGERY POST-OP SUMMARY Slaed Peacock III is a 66 y.o. year old male who underwent Mohs surgery today 04/23/2022. The following is a summary of the operative findings: Lesion 1 Melanoma in situ (MIS) Location left nasal tip Size Preop (cm) 1.2 cm x 0.6 cm Size Postop (cm) 1.9 cm x 1.5 cm Stages 1 Depth of Excision perichondrium Repair nasolabial interpolation flap Mr. Madonna FLORES was discharged from the operative suite in good condition. He was carefully instructed in postoperative wound care both verbally and in writing. The patient will return for suture removal in 7 days. The patient will return for flap takedown in approximately three weeks. Note: STAGING BIOPSY (PERMANENT SECTIONS): The margins were evaluated and found to be clear by Mohssurgery. Prior to initiating Mohs surgery, the bulk of the residual lesion was removed and sent to pathology for further characterization for staging and prognostic purposes. The patient will be notified of the final pathology results within the next 7 days and additional recommendations will be made as indicated at that time. Devon Nunes MD 04/26/2022 14:44 MOHS OPERATIVE REPORT USING MART-1 IMMUNOSTAINS Patient Name: Slade Peacock III Date of Service: April 23, 2022 Surgeon and pathologist: Devon Nunes MD Magnet Maker: Rosas Muir MD Case #: [id number] - 180 Mohs AUC Score: 8 (APPROPRIATE) Preoperative Diagnosis: Melanoma in situ (MIS) Preoperative Procedure: Mohs micrographic surgery Location of Lesion: left nasal tip Preoperative Lesion Size: 1.2 cm x 0.6 cm Preoperative Procedure: Mohs microscopically-controlled fresh tissue excision Indications: The patient presents with a melanoma in situ (MIS) complicated by the following clinical features: location critical for tissue conservation and large size. Because of the histologic andclinical nature of the lesion, as well as its location, the need to achieve the highest cure rate while providing maximum tissue preservation warranted tumor extirpation via microscopically-controlled excision using the Mohs fresh tissue technique. Alternate therapeutic options were discussed priorto surgery. After informed consent was obtained and appropriate instruction was provided, the patient underwent tumor extirpation by the Mohs fresh tissue technique as follows: PROCEDURE - INITIAL STAGE: Patient position: supine Anesthesia: 1% lidocaine with epinephrine 1:200,000 local infiltration Prep: Povodine Iodine No data found. The patient was brought to the operative suite. The lesion was identified and was prepped in a sterile fashion. The area was infiltrated with lidocaine/epinephrine to achieve complete anesthesia and to augment hemostasis. The Mohs procedure was then carried out by Dr. Nunes as follows: An initial b eveled excision was performed to the perichondrium with a scalpel blade and tissue scissors as indicated. 2 hashes were created in the specimen and within the adjacent epidermis for marking purposes.The Mohs specimen was excised in a sharp manner, and carefully placed in proper orientation on the surgical tray. Hemostasis of the operative wound was obtained with careful spot electrocoagulation. A sterile non-adherent dressing was applied to the operative wound. The Mohs tissue specimen was carefully transferred to the lab where the tissue was divided into 2 epidermal sections and one central section. These specimens were mapped and then handed personally bythe doctor to the photonics engineering technician for frozen sectioning. The tissue was embedded so that the deep and surface margins lay en face and sections were made through this plane. Once the slide preparation was c omplete Dr. Nunes performed histologic evaluation and interpretation of all sections. A summary ofthe findings may be found below. Stage 1 findings: Wound depth perichondrium Sections created 3 Number of sections containing tumor 0 Histologic findings SUN DAMAGED SKIN: Sections consist of a portion of skin, including epidermis, dermis, and subcutis. The epidermis is unremarkable. There is chronic patchy inflammation and solar elastosis present within the dermis. There is no evidence of malignancy at the surgical margins. The control slide was reviewed and found to be appropriately negative. ADDITIONAL STAGES: None With the patient clear of microscopic tumor, surgery was considered complete. The wound was repaired with a STAGED INTERPOLATION FLAP as detailed in the separate flap repair procedure note below. Postoperative Wound Size: 1.9 cm x 1.5 cm Final Diagnosis: Melanoma in situ (MIS) Consultation with Dermatopathology: Not performed. Final Procedure: Mohs micrographic surgery Blood Loss: Minimal Operative Time: 90 minutes Complications: None Note: None PARAFFIN BIOPSY: MART-1 (Melanoma Antigen Recognized by T-cells) antibody immunostaining was used during Mohs surgery as per standard protocol, in addition to routine processing of all sections with hematoxylin and eosin (3 specimens total). The patient was informed of the procedure and its risk/cindy efits during the consent for the procedure. Additionally, prior to initiating Mohs surgery, the residual melanocytic lesion was removed and sent to pathology for further characterization, including possible invasion or depth of invasion, of the original lesion for prognostic purposes. It was not sent for margin evaluation. This tissue was not sent out from Mohs surgery and therefore was not part of the procedure. One or more of the reagents used in immunohistochemical testing in this case may not have been cleared or approved by the U.S. Food and Drug Administration (FDA). The FDA has determined that such clearance or approval is not necessary. These tests are used for clinical purposes. They should not be regarded as investigational or for research. These reagents' performance characteristics have been determined by [facility]. This laboratory is certified under the Clinical Laboratory Improvement Amendments of 1988 (CLIA-88) as qualified to perform high complexity clinical laboratory testing. The attending physician performed the procedure. Devon Nunes MD 04/26/2022 14:44 Nasolabial Interpolation Flap Procedure Note PATIENT INFORMATION: Slade Peacock III : MRN: [id number] SURGEON: Devon Nunes MD CHARTING CLERK: Rosas Muir MD Preoperative Diagnosis: Defect following microscopically controlled excision of melanoma in situ (MIS) Preoperative Procedure: Staged Nasolabial Interpolation Flap Location of Wound: left nasal tip Indications: Large, deep nasal wound requiring functional and aesthetic reconstruction. Wound dimensions: 1.9 cm x 1.5 cm After careful consideration and discussion of all repair options, it was determined that a staged nasolabial pedicle flap would provide the best functional and aesthetic result for this operative defect. Alternate options were discussed and the patient was encouraged to ask questions, which, I belie ve, were answered completely. Informed consent was obtained in writing. After informed consent was obtained and appropriate instruction was provided, the patient underwent repair as follows. PROCEDURE Patient position: Supine Anesthesia: 1% lidocaine with epinephrine 1:100,000 local infiltration Prep: Povodine Iodine The patient was brought to the operative suite and was placed in the recumbent position. The Mohs operative defect on the nose was identified and the surrounding tissues were evaluated for mobility and suitability for a local flap repair. This was deemed to be implausible. A skin graft was considered but was opted against due to the depth of the operative wound and the need for a more substantiverepair. The operative site and the medial cheek were prepped in the usual sterile fashion and draped with sterile drapes. A template of the operative defect was obtained by using sterile gauze or aluminum suture casing. A suitable nasolabial pedicle flap was outlined on the ipsilateral cheek. The de fect, donor site and surrounding tissues were then anesthetized with 1% lidocaine with epinephrine to achieve complete local anesthesia and to augment hemostasis. Following complete anesthesia the flap was elevated within the subcutis at a deep enough level to ensure adequate vascularity. Care was taken to elevate the base of the pedicle with fibers of the levator labii superioris muscle to allow for adequate flap perfusion. Hemostasis was achieved by spot electrocoagulation and by ligature of any small arterial branches with 5.0 Vicryl sutures. Once a suitable length had been achieved, the flap was elevated out of the way and the donor site was closed within the nasolabial fold in a layered fashion with 5.0 Monocryl (poliglecaprone 25) buried interrupted sutures and running 6.0 Prolene (polypropylene) surface sutures. The distal flap was carefully thinned of excess adipose as was feasible without compromising vascularity. The flap was then rotated about the pedicle into position and was tacked to the nose at its depth with a single 5.0 Vicryl buried inturrupted suture. The margin of the flap was then carefully sewn into place with several 5.0 Monocryl (poliglecaprone 25) buried interrupted sutures and multiple6.0 Prolene (polypropylene) surface sutures. The flap remained pink and viable throughout the entire operative procedure. Great care was taken not to place undue tension or torsion on the flap repair. The open surface of the flap was observed for bleeding and all bleeders were stopped either with careful ligation or spot electrocoagulation. The wound edges were cleansed with peroxide and dressed with petrolatum, a non-adherent gauze pad and Hypafix?? tape. Verbal and written wound care instructions were given. The patient tolerated the procedure well and left the operating suite in excellent condition. Final Diagnosis: Defect following microscopically controlled excision Final Procedure: Staged Nasolabial Interpolation Flap Flap Area / Size: N/A Blood Loss: minimal Operative Time: 60 minutes Complications: None NOTE: This is a planned staged procedure. The patient will return for the second stage (flap takedown) in approximately 3 weeks. The attending physician performed the procedure. Devon Nunes MD 04/26/2022 12:27 documented in this encounter Miscellaneous Notes * Result Encounter Note - Devon Nunes MD - 04/26/2022 0815 EDT Patient notified of biopsy result by letter. No additional treatment or follow up required. Please enter into biopsy log. * Result Encounter Note - Madhavi Calderon MA - 04/26/2022 0815 EDT Results logged. MADHAVI CALDERON MA 04/27/2022 10:34 documented in this encounter Plan of Treatment Not on file documented as of this encounter Procedures Procedure Name Priority Date/Time Associated Diagnosis Comments PROCEDURE REPORTS - SCANNED 04/29/2022 8:27 EDT SURGICAL PATHOLOGY Routine 04/26/2022 10 :55 EDT Melanoma in situ of nose ([facility]) documented in this encounter Results * PROCEDURE REPORTS - SCANNED (04/29/2022 8:27 EDT) 04/29/2022 8:27 EDT Scan 2 Wash Operator PROCEDURE/MINOR EUNICE GICAL ORDERABLES * SURGICAL PATHOLOGY (04/26/2022 10:55 EDT) Note to Patient The following pathology results have been interpreted by your pathologist and may be available to you before your health provider has had the opportunity to review them. Please allow time for your provider to receive these results and explore management options, if applicable. 04/27/2022 8:22 EDT [facility] Final Diagnosis A. SKIN OF NASAL TIP, LEFT, CENTRAL DEBULK, MOHS EXCISION: - Melanoma in-situ. See comment. 04/27/2022 8:22 EDT [facility] Diagnosis Comment The Mohs excision specimen shows melanoma in-situ. Confluent and atypical melanocytes are seen along the junction with adnexal extension. Prominent solar elastosis is noted. A dermal component is not identified. A prior specimen from this location is not available for comparison. The margins were assessed at the time of Mohs procedure. See Mohs report for margin status. 04/27/2022 8:22 [facility] Attestation There was significant resident/fellow involvement in the diagnostic evaluation of this case. By the signature below, the attending physician certifies that they have personally conducted a gross and/or microscopic examination of the described specimens and rendered or confirmed the above diagnosis. 04/27/2022 8:22 [facility] at 0822 Clinical History MIS left nasal tip, margins assessed with Mohs 04/26/2022; debulk submitted for staging; clinical diagnosis code: D03.39 04/27/2022 8:22 [facility] Gross Description A. Received in formalin labelled with proper patient identification (initials W, T) and left nasal tip are 4 unoriented rectangular sections of a shave biopsy of raines-white skin ranging in size from 1.0 x 0.2 x 0.2 cm to 1.3 x 0.3 x 0.3 cm. The specimens are submitted in A1-A2. ROMÁN TOBIAS DO 04/26/2022 13:42 04/27/2022 8:22 [facility] Resident/Avery w: Román Tobias DO 04/27/2022 8:22 [facility] Performing Lab [facility] 04/27/2022 8:22 [facility] Scanned Images 04/27/2022 8:22 [facility] Tissue TISSUE SPECIMEN FROM SKIN / Unknown Collection, Other / Unknown 04/26/2022 10:55 EDT 04/26/2022 11:39 EDT Devon Nunes MD PATHOLOGY ORDERABLE S [facility] [address] [place] [address] documented in this encounter Visit Diagnoses Diagnosis Melanoma in situ of nose (HCC-CMS)- Primary Malignant melanoma of skin of other and unspecified parts of face documented in this encounter Care Teams Mural Painter Relationship Specialty Start Date End Date Iesha Crowley MD [address] [place] [address] PCP - General 04/08/22 documented as of this encounter
--- OUTSIDE RECORDS SUMMARY | 2023-11-01 20:29 | XMS_ITS | Data Portability ---
Author Organization [place] - [facility], [facility] Address [address] [place] [address] Assessment Encounter Date Assessment Date Assessment LastModified by Organization Details LastModified Time 07/05/2023 07/05/2023 The patient is a 68-year-old male with a history of ulcerative colitis, high cholesterol, gout, and mild chronic kidney disease Stage 3A. The patient's colitis has been well-managed with medication and is interested in connecting with a GI doctor. The patient's cholesterol levels are elevated, and the patient is considering starting a statin. The patient has a history of gout and manages it with increased water intake. [email or web address] Not available 07/05/2023 17:00:42 Plan of Treatment Reminders Order Date Submit Date Provider Last Modified By Organization Details Last Modified Time Details Appointments Nurse Visit 20 2023 07:30A M Not available Not available Not available Medicare Wellness 40 (Subs) 2023 02:00P M Not available Not available Not available Lab lipid panel, serum [address] [facility] (Registration ), [address] [place] [address] [place], [address], 11/01/2023 14:56:22 CMP, serum or plasma 2023 024 [facility] (Registration ), [address] [place] [address] [place], [address], 11/01/2023 16:44:50 uric acid, serum or plasma [address] [facility] (Registration ), [address] [facility] [place], [address], 11/01/2023 14:56:39 Referral gastroent erologist referral 2023 [facility], [address], [address], [place], [address], 10/06/2023 05:00:10 Procedures None recorded. Surgeries None recorded. Imaging None recorded. Medication Orders balsalazi de 750 mg capsule 2023 [id number], [address], [place], [place], [id number], 07/05/2023 16:57:59 rosuvasta tin 5 mg tablet 2023 024 [id number], [address], [place], [place], [phone], 07/05/2023 16:58:52 Patient TargetsNo targets recorded. Patient Instructions Encounter Date Encounter Id Patient Instructions Last Modified By Organization Details Last Modified Time 07/05/2023 [id number] - Continue takin g colitis medication as prescribed. - Start taking the prescribed statin for cholesterol management. - Maintain the current water intake for gout and kidney health. - Receive tetanus and pneumonia vaccinations today. - Schedule a referral to a GI doctor for further management of ulcerative colitis. - Return for a follow-up visit in three months to recheck cholesterol levels and discuss the effectiveness of the statin. [email or web address] Not available 07/05/2023 16:55:55 Reason for Referral Mold Presser Referral for Ulcerative colitis Referring Physician: Iesha Crowley, Family Medicine, Encounter Date: 07/05/2023 Results Created Date Observation Date Name Description Value Unit Range Abnormal Flag Note LastModifiedBy Organization Detail LastModifiedTime 11/01/19 24 11/01/2023 COMPR EHENS DENNIS METAB OLIC PANEL calcium 9.7 mg/dL 8.5-10 .1 normal Not Available [facility] [address] [place] [address] [place], [address] 11/01/2023 17:25:01 11/01/19 24 11/01/2023 COMPR EHENS DENNIS METAB OLIC PANEL glucose 83 mg/dL 74-106 normal Not Available Janie reno [address], [address] 11/01/2023 17:25:01 11/01/19 24 11/01/2023 COMPR EHENS DENNIS METAB OLIC PANEL BUN 24 mg/dL 7-18 high Not Available Janie reno [address] [place], [address] 11/01/2023 17:25:01 11/01/19 24 11/01/2023 COMPR EHENS DENNIS METAB OLIC PANEL creatinine 1.4 mg/dL 0.70-1 .30 high Not Available [address] [place], [address] 11/01/2023 17:25:01 11/01/19 24 11/01/2023 COMPR EHENS DENNIS METAB OLIC PANEL estimated GFR 55.43 mL/min /1.73M 2 The eGFR is calcu lated from a serum creat inine using the CKD-E PI 2020 equat ion. Other varia bles requi red for the equat ion are gende r and age; this equat ion does not inclu de a race coeff icien t. This equat ion has simil ar overa ll perfo rmanc e to previ ous equat ions excep t value s may diffe r, in parti cular , in patie nts with highe r value s of eGFR and young er-ag ed adult s. Not Available [address] [place], [address] 11/01/2023 17:25:01 11/01/19 24 11/01/2023 COMPR EHENS DENNIS METAB OLIC PANEL total protein 7.5 g/dL 6.4-8. 2 normal Not Available [address] [place], [address] 11/01/2023 17:25:01 11/01/19 24 11/01/2023 COMPR EHENS DENNIS METAB OLIC PANEL albumin 3.6 g/dL 3.4-5. 0 normal Not Available [address] [place], [address] 11/01/2023 17:25:01 11/01/19 24 11/01/2023 COMPR EHENS DENNIS METAB OLIC PANEL bilirubin, total 0.83 mg/dL 0.2-1. 0 normal Not Available [address] [place], [address] 11/01/2023 17:25:01 11/01/19 24 11/01/2023 COMPR EHENS DENNIS METAB OLIC PANEL alk phos 54 U/L 46-116 normal Not Available [address] [place], [address] 11/01/2023 17:25:01 11/01/19 24 11/01/2023 COMPR EHENS DENNIS METAB OLIC PANEL sodium 140 mmol/ L 136-14 5 normal Not Available [address] [place], [address] 11/01/2023 17:25:01 11/01/19 24 11/01/2023 COMPR EHENS DENNIS METAB OLIC PANEL potassium 4.2 mmol/ L 3.5-5. 1 normal Not Available [address] [place], [address] 11/01/2023 17:25:01 11/01/19 24 11/01/2023 COMPR EHENS DENNIS METAB OLIC PANEL chloride 106 mmol/ L 98-107 normal Not Available [address] [place], [address] 11/01/2023 17:25:01 11/01/19 24 11/01/2023 COMPR EHENS DENNIS METAB OLIC PANEL CO2 25.9 mmol/ L 21.0-3 2.0 normal Not Available [address] [place], [address] 11/01/2023 17:25:01 11/01/19 24 11/01/2023 COMPR EHENS DENNIS METAB OLIC PANEL anion gap 8.1 mmol/ L 3-11 normal Not Available [address] [place], [address] 11/01/2023 17:25:01 11/01/19 24 11/01/2023 COMPR EHENS DENNIS METAB OLIC PANEL AST 37 U/L 15-37 normal Not Available Janie reno [address], [address] 11/01/2023 17:25:01 11/01/19 24 11/01/2023 COMPR EHENS DENNIS METAB OLIC PANEL ALT 29 U/L 16-63 normal Not Available Janie reno [address] [place], [address] 11/01/2023 17:25:01 11/01/19 24 11/01/2023 URIC ACID uric acid 7.1 mg/dL 3.5-7. 2 normal Not Available [address] [place], [address] 11/01/2023 16:44:51 11/01/19 24 11/01/2023 URIC ACID uric acid 7.1 mg/dL 3.5-7. 2 normal Not Available [address] [place], [address] 11/01/2023 17:25:02 11/01/19 24 11/01/2023 LIPID 2 cholesterol 147 mg/dL <200 Not Available [address] [place], [address] 11/01/2023 17:25:02 11/01/19 24 11/01/2023 LIPID 2 triglyceride 61 mg/dL <150 Not Available [address] [place], [address] 11/01/2023 17:25:02 11/01/19 24 11/01/2023 LIPID 2 HDL cholesterol 50 mg/dL 40-60 Not Available [facility] [place], [address] 11/01/2023 17:25:02 11/01/19 24 11/01/2023 LIPID 2 calculated LDL 85 mg/dL <100 Natio nal Dawn stero l Educa tion Progr am (NCEP -ATPI II) class ifica tions : Dawn stero l <200 mg/dL Melodie able Dawn stero l 200-2 39 mg/dL Borde rline High Dawn stero l >or=2 40 mg/dL High HDL <40 mg/dL Low HDL >or=6 0 mg/dL High LDL <100 mg/dL Optim al LDL 100-1 29 mg/dL Near Optim al/Ab ove Optim al LDL 130-1 59 mg/dL Borde rline High LDL 160-1 89 mg/dL High LDL >or=1 90 mg/dL Very High *The above refer ence range is for adult s 18 years or older . Not Available [facility] [address], [place], [address] 11/01/2023 17:25:02 Result Notes None recorded. Problems Name Problem SNOMED Code Status Onset Date Resolution Date Notes Provider Name and Address Organization Details Recorded Time IgA nephropa thy 094243243 Active 2022 Not Available [facility] 3 05:15:32 History of cardiova scular disease 391236702 Active 2022 Problem Code: Z86.79; Problem Code Type: ICD-10; Not Available [facility] 3 05:15:32 Right bundle branch block 45340778 Active 2022 Problem Code: I45.10; Problem Code Type: ICD-10; Not Available [facility] 3 05:15:32 At risk - finding 555683616 Active 2022 Problem Code: Z91.89; Problem Code Type: ICD-10; Not Available [facility] 3 05:15:32 Internal hordeolu m 527547804 Active 2022 Problem Code: H00.029; Problem Code Type: ICD-10; Not Available [facility] 3 05:15:32 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 99031331 Active 2022 Problem Code: C43.31; Problem Code Type: ICD-10; Not Available [facility] 3 05:15:33 Hyperlip idemia screenin g Completed 202208/10/2022 Problem Code: Z13.220; Problem Code Type: ICD-10; Not Available [facility] 3 05:15:33 Diabetes mellitus screenin g Completed 202206/11/2022 Problem Code: Z13.1; Problem Code Type: ICD-10; Not Available [facility] 3 05:15:33 Tinnitus 21392561 Active 2022 Problem Code: H93.19; Problem Code Type: ICD-10; Not Available [facility] 3 05:15:33 Ulcerati ve colitis 04677365 Active 2022 Problem Code: K51.90; Problem Code Type: ICD-10; Not Available [facility] 3 05:15:33 Adult health examinat ion Active 2022 Problem Code: Z00.00; Problem Code Type: ICD-10; Not Available [facility] 05:15:33 Hypercho lesterol emia 69618823 Active 2023 IESHA CROWLEY MD [address], [place] [address] , [facility] 4 16:57:04 Chronic kidney disease stage 3A 136413782 Active [address], [place] [address] , [facility] 4 16:58:20 Basal cell carcinom a of skin 140462534 Active 2023 [facility] [address], [address] 4 13:40:06 Problem Notes None recorded. Medical [...] ceptT ype: 'RX Norm' ; Not Available [facility] 3 16:11:34 Medications Name Sig Start Date [...] Available Not Available No t Available Vitals Date Recorded Body height Body mass index (BMI) Body weight Body temperature Oxygen saturation Oxygen saturation in Arterial blood by Pulse oximetry Heart rate Systolic blood pressure Diastolic blood pressure Provider Name and Address Organization Details Last Updated DateTime 4 193.04 cm 25.1 kg/m2 35135.3 1 g 97.8 [degF] 98 % 98 % 84 /min 126 mm[Hg] 78 mm[Hg] SAY MODI RN [facility] 4 10:24:54 Social History None recorded. Functional Status None [...] Details Recorded Time Pneumococcal conjugate PCV20, polysaccharide ZPG388 conjugate, adjuvant, PF 07/05/[address], [place], [address], [facility] 07/05/2023 16:57:03 Td (adult), 2 Lf tetanus toxoid, preservative free, adsorbed 07/05/[address] completed MD [address], [place], [address], [place] [facility]. 07/05/2023 16:57:03 COVID-19, mRNA, LNP-S, PF, 30 mcg/0.3 mL dose 04/15/2020 completed Not Available [facility] 12/24/2022 04:04:49 COVID-19, mRNA, LNP-S, PF, 30 mcg/0.3 mL dose 05/09/2020 completed Not Available [facility] 12/24/2022 04:04:50 Past Encounters Encounter ID Performer Location Encounter Start Date Encounter Closed Date Diagnosis/Indication Diagnosis SNOMED-CT Code Diagnosis ICD10 Code [id number] IESHA CROWLEY MD [address] [address] 07/05/2023 09:54:45 07/05/2023 11:08:34 Ulcerative colitis 98548870 K51.90 Active or passive immunization 800102117 Z23 Chronic ki dney disease stage 3A 205107178 N18.31 Hypercholesterolemia 136 29325 E78.00 [id number] Shanel Ricks LPN [address] [address] 11/01/2023 07:19:14 11/01/2023 08:17:25 Hypercholesterolemia 64404588 E78.00 Chronic ki dney disease stage 3A 706284010 N18.31 History of gout 83816786 4 Z87.39 Health Concerns Section Related Observation LastModified by Organization Detai ls LastModified Time None Recorded Concern Status LastModified by Organization Details LastModified Time None Recorded Advance Directives Directive None Recorded Payers Encounter Date Sequence Insurance Name Policy Number Policy Faust Covered Member ID Faust Member ID Guarantor Name 07/05/2023 1 [place] [employer] Slade Peacock [id number] 1 Slade Peacock 07/05/2023 2 [employer] - [employer] - PLAN F (MEDICARE SUPPLEMENT) Slade Peacock [id number] Slade Peacock 11/01/2023 1 [place] [employer] Slade Peacock [id number] 1 Slade Peacock 11/01/2023 2 [employer] - [employer] - PLAN F (MEDICARE SUPPLEMENT) Slade Peacock [id number] Slade Youngblood Peacock Notes Date Note Type Note Provider Name and Address Organization Details Recorded Time 07/05/2023 text/html HPI Notes: Tasha garcia presents for a prescription renewal for colitis medication and discussion of blood work results. Ulcerative colitis: The condition has been managed with Balsalazide, which has been effective in controlling the symptoms. The patient has not seen a GI doctor recently and is interested in a referral. High cholesterol: Patient's most recent blood work showed elevated cholesterol levels, with a total cholesterol of 212 and LDL of 143. The patient has a fairly healthy diet and is not overweight, but is considering starting a statin to reduce cholesterol levels. Gout: Patient has a history of gout and drinks 88 ounces of water daily to manage the condition. The patient experienced a gout attack in the wrist last winter. IESHA CROWLEY MD [address], [place], [address], [facility]. 07/05/2023 17:01:10
--- OUTSIDE RECORDS SUMMARY | 2023-11-01 20:29 | XMS_ITS | Encounter Summary ---
Author Organization [facility] Address [address] [place] [address] Care Team Providers Care [employer] Name Role Phone Iesha Crowley MD Primary Care Provider [phone] Reason for Visit * Reason Comments Follow-up Patient still experi encing discomfort where root of flap was done. Finds when eating, talking it can hurt. Encounter Details Date Type Department Care Team (Late st Contact Info) Description 07/01/2023 14:00 EDT Office Visit [facility] Dermatology 5th Floor [address] [phone] Devon Nunes MD [address] [facility], [address] [place] [address] History of melanoma in situ (Primary Dx); Scar Social History Tobacco Use Types Packs/Day Years Used Date Smoking Tobacco: Unknown Tobacco Cessation:Counseling Given: Not Answered Sex and Gender Information Value Date Recorded Sex Assigned at Not on file Gender Identity Male 04/08/2022 14:08 EST Sexual Orientation Not on file documented as of this encounter Patient Instructions * Patient Instructions* Drake French MD - 07/01/2023 14:00 EDT You could try something like lidocaine cream(should be available OTC at the pharmacy). You could see if this helps with the sensation. documented in this encounter Progress Notes * Drake French MD - 07/01/2023 1400 EDT Mohs Follow Up Note Chief Complaint Patient presents with Follow-up Patient still experiencing discomfort where root of flap was done. Finds when eating, talking it can hurt. 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 He notes that he still has odd sensations in the area of his prior flap stalk on the left medial cheek. He notes that the sensation feels almost like there is still a stitch or something there. He will feel like it is a pulling or something like that when he feels the sensation. He is wondering if there is a good ointment or other thing he could try for the sensation. He notes that the pain is mostly somewhere in the 2-5 range and it is like a throb. He has pain almost constantly, but it will get better and worse. He has no additional concerns he wishes to discuss today. For full Medical, Surgical, Family, and Social histories as well as Review of Systems, Medications and Allergies please see those sections of this encounter in the electronic chart which I have personally reviewed. OBJECTIVE The patient is a alert and well appearing 68 y.o.-year-old male sitting on the examination table. FOCUSED SKIN EXAM: A focused cutaneous examination of the face is performed. The exam was notable for the following findings: Well healed scar on the left nasal ala and cheek without nodularity, ulceration or other concerningsigns of recurrence. No palpable scar tissue in the area of the flap. No discernable abnormality is identified. The remainder of the skin examined was normal. ASSESSMENT Well healed nasolabial interpolation flap on the left nasal ala with no evidence of recurrent melanoma in situ (MIS) following Mohs surgery. PLAN Discussed with the patient that the exact cause of his symptoms are not clear. One possibility could be a small neuroma, although there is no palpable neuroma today on exam. We discussed that at times, there are cases where post-operative sensory changes can persist for multiple years. At this point, we would recommend against doing a surgical intervention. We discussed that he could try an OTC lidocaine cream or NSAID to see if that can help with the sensation. The importance of sun avoidance, sun protection and regular self skin examinations for the prevention and detection of new skin cancers reviewed. I discussed with Mr. Madonna FLORES that he is at low risk for recurrence of his skin cancer, however, he is at increased risk for the development of new ad ditional skin cancers elsewhere and for that reason regular ongoing follow up for skin surveillanceexaminations is recommended. Patient will return for follow up as needed. Drake French MD 07/01/2023 14:39 Attestation statement: I saw and examined the patient with the resident / fellow. I agree with the findings and plan of care documented in the resident's / fellow's note. Devon Nunes MD 07/01/2023 17:28 documented in this encounter Plan of Treatment Not on file documented as of this encounter Visit Diagnoses Diagnosis History of melanoma in situ- Primary Personal history of malignant melanoma of skin Scar Scar condition and fibrosis of skin documented in this encounter Care Teams [employer] Relationship Specialty Start Date End Date Iesha Crowley MD [address] [place] [address] PCP - General 04/08/22 documented as of this encounter
--- OUTSIDE RECORDS SUMMARY | 2023-11-01 20:29 | XMS_ITS | Encounter Summary ---
Author Organization [facility] Address [address] [place] [address] Care Team Providers Care Deckhand Maintenance Name Role Phone Iesha Crowley MD Primary Care Provider [phone] Reason for Visit * Reason Onset Date Comments New/Evolving Symptoms 03/21/2023 Encounter Details Date Type Department Care Team (Late st Contact Info) Description 03/21/2023 Telephone [facility] Dermatology 5th Floor [facility] [address] [place], [place] [phone] Devon Nunes MD [address] [place] [address], [address] [place] [address] New/Evolving Symptoms Social History Tobacco Use Types Packs/Day Years Used Date Smoking Tobacco: Unknown Sex and Gender Information Value Date Recorded Sex Assigned at Not on file Gender Identity Male 04/08/2022 14:08 EST Sexual Orientation Not on file documented as of this encounter Miscellaneous Notes * Telephone Encounter - Prateek Falk RN - 06/09/2023 1344 EDT Called pt, relayed the following advice per Dr. Nunes: It can take up to two years. In some cases the skin may never feel 100% normal after surgery but it most cases these symptoms resolve. I am always happy to see him if he has a concern. Pt asked if there was a topical medication to apply to relieve these symptoms. Pt [facility] and will follow up with them about this. Pt will call back with changes, concerns, and/or questions. PRATEEK FALK RN 06/09/2023 13:45 * Telephone Encounter - Prateek Falk RN - 06/09/2023 1146 EDT S/P MOHS with nasolabial interpolation flap of melanoma in situ on the left nasal tip on 04/26/22 byDevon Nunes MD. Flap takedown on 05/18/22. Had MOHS follow up with Dr. Nunes on 09/02/22. Had another MOHS follow up on 06/02/23 which pt cancelled. Pt states he is still having discomfort, but has improved some. Feels a little tight, sore, and hasa strange sensation that is pronounced when using facial muscles. Notes a little discoloration, butnot pronounced. Denies swelling. Unable to tell if there is numbness in area. Pt understands it maytake up to a year. Patient is looking for a timeline of when he should be feeling normal and/or at what point would the doctor say this is odd that he is having these symptoms. PRATEEK FALK RN 06/09/2023 12:03 * Telephone Encounter - Tami Lund - 06/09/2023 1143 EDT Patient is calling regarding Mohs from 04.26.22. he states that there is still some discomfort and would like to discuss. As well as discuss if he has to come into the office. * Telephone Encounter - George Delcid RN - 03/22/2023 1639 EST Called and scheduled patient for a MOHS follow-up appointment with Devon Nunes MD on 06/02/23. GEORGE DELCID RN 03/22/2023 16:39 * Telephone Encounter - Prateek Falk RN - 03/22/2023 1606 EST Called pt to offer MOHS f/u with Dr. Nunes on 04/01 at 2:30pm. Patient states he is in [place] visiting family until May 29. Is available any day when returns. Advised would call back with options to schedule. Patient verbalized understanding. No barriers to learning. PRATEEK FALK RN 03/22/2023 16:10 * Telephone Encounter - Prateek Falk RN - 03/21/2023 1446 EST S/P MOHS with nasolabial interpolation flap of melanoma in situ on the left nasal tip on 04/26/2022 by Devon Nunes MD. S/P pedical flap division and inset on 05/18/2022. Returned call to patient's home #, pt's (Gisela) answered, contract technical writer asked to speak with pt, caregiver then got on the phone and stated Prashant last year. Called pt's mobile # and spoke with pt. Was having discomfort at last office visit, where it was attached to face, was told it would go away in a few months. Pt is still having discomfort. Uncomfortable when talking and chewing, feels a tightness off/on, states it hasn't changed much since last summer. Otherwise healed fine, notes a tiny blood vessel break along scar, but doesn't seem concerned. Has been massaging site off and on. Has not applied anything to area. Is aware of healing process taking 12-18 months. Patient is looking for advice going forward since still having the same discomfort as last year. Sending note to provider. PRATEEK FALK RN 03/21/2023 15:13 * Telephone Encounter - Lena Sequeira - 03/21/2023 1426 EST Patient calling about some continued discomfort he's having following a surgical excision of melanoma in situ of nose he had on 05/18/22. Patient states that he is experiencing some discomfort on the excision site, specifically when he eats, talks or moves his facial muscles. Patient states that the wound has healed wonderfully and looks great but he is slightly concerned that he is still experiencing this kind of discomfort. Please advise thanks! documented in this encounter Plan of Treatment Not on file documented as of this encounter Visit Diagnoses Not on filedocumented in this encounter Care Teams Deckhand Maintenance Relationship Specialty Start Date End Date Iesha Crowley MD [address] [place], [place] [id number] PCP - General 04/08/22 documented as of this encounter
--- OUTSIDE RECORDS SUMMARY | 2023-11-01 20:29 | XMS_ITS | Encounter Summary ---
Author Organization [facility] Address [address] [place] [address] Care Team Providers Care Community Outreach Coordinator Name Role Phone Iesha Crowley MD Primary Care Provider [phone] Encounter Details Date Type Department Care Team (Late st Contact Info) Description 07/20/2023 Lab Requisition [facility] Pathology & Laboratory Medicine - [address] [address] Divina Gallego PA [address] [place] [address] [place], [place] [address] Neoplasm of uncertain behavior of skin Social History Tobacco Use Types Packs/Day Years Used Date Smoking Tobacco: Unknown Sex and Gender Information Value Date Recorded Sex Assigned at Not on file Gender Identity Male 04/08/2022 14:08 EST Sexual Orientation Not on file documented as of this encounter Plan of Treatment Not on file documented as of this encounter Procedures Procedure Name Priority Date/Time Associated Diagnosis Comments SURGICAL PATHOLOGY Today 07/19/2023 15 :20 EDT Neoplasm of uncertain behavior of skin documented in this encounter Results * SURGICAL PATHOLOGY (07/19/2023 15:20 EDT) Note to Patient The following pathology results have been interpreted by your pathologist and may be available to you before your health provider has had the opportunity to review them. Please allow time for your provider to receive these results and explore management options, if applicable. 07/21/2023 10:34 [facility] Final Diagnosis A. SKIN OF ARM, RIGHT ANTERIOR LATERAL PROXIMAL UPPER, SHAVE BIOPSY: - Basal cell carcinoma, superficial multicentric type. - Basal cell carcinoma present at peripheral tissue edge. 07/21/2023 10:34 [facility] Attestation By the signature below, the attending physician certifies that they have 1) personally conducted a gross and/or microscopic examination of the described specimen(s), and/or personally interpreted the results of laboratory testing of the described specimen(s), and 2) personally rendered or confirmed the above diagnosis. 07/21/2023 10:34 [facility] at 1034 Microscopic Description Emanating from the epidermis and extending into the papillary dermis are buds of atypical basal cells. The basal cells have scant cytoplasm and round dark nuclei. Mitotic figures and apoptotic bodies are evident. The nuclei at the periphery of the buds have a palisaded arrangement. The superficial dermis is loose and, in some areas, there is retraction of the atypical cells from the stroma. 07/21/2023 10:34 [facility] Clinical History 1 cm erythematous plaque; Ddx: Neoplasm of uncertain behavior vs HAK vs superficial BCC; clinical diagnosis code: D48.5 07/21/2023 10:34 [facility] Gross Description A. Received in formalin labelled with proper patient identification (initials W, T) and right anterior lateral prox...* is a shave biopsy of irregular dennis scaly skin (1.1 x 1.0 x 0.1 cm). Received in the same specimen container is an irregular portion of wispy skin (0.5 x 0.1 by less than 0.1 cm). The margins are inked blue. The larger tissue is quadrisected and entirely submitted in A1-A2 and the smaller tissue is submitted intact in A3. Raina Hidalgo 07/20/2023 9:32 07/21/2023 10:34 [facility] Performing Lab [facility] 07/21/2023 10:34 [facility] Scanned Images 07/21/2023 10:34 [facility] Tissue SPECIMEN FROM SKIN / Unknown 07/19/2023 15:20 EDT 07/20/2023 8:14 EDT Divina JAMES PATHOLOGY ORDERABLES [facility] [address] [place], [place] [address] documented in this encounter Visit Diagnoses Diagnosis Neoplasm of uncertain behavior of skin documented in this encounter Care Teams Community Outreach Coordinator Relationship Specialty Start Date End Date Iesha Crowley MD [address] [place] [address] PCP - General 04/08/22 documented as of this encounter
--- OUTSIDE RECORDS SUMMARY | 2023-11-01 20:29 | XMS_ITS | Encounter Summary ---
Author Organization [facility] Address [address] [place] [address] Care Team Providers Care [facility] Name Role Phone Iesha Crowley MD Primary Care Provider [phone] Reason for Visit * Reason Comments Wound Check Left nose Encounter Details Date Type Department Care Team (Late st Contact Info) Description 04/29/2022 9:15 EDT Nurse Only [employer] Dermatology 5th Floor [facility] [address] [place] [address] Nursing Team, [facility] Dermatology Mohs Melanoma in situ of nose [...] * Patient Instructions* Karthikeyan Juan MA - 04/29/2022 9:15 EDT [facility] DEPARTMENT OF DERMATOLOGY Wound Care [...] Progress Notes * Karthikeyan Juan MA - 04/29/2022 0877 EDT Images from the original note were not included. WOUND ASSESSMENT CC: Chief Complaint Patient presents with ??? Wound Check Left nose Mr. 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 SUBJECTIVE: Patient reports the stock seemed more red and swollen. States that he is in no pain, no order or chills and fever. OBJECTIVE: There were no vitals taken for this visit. Wound edges: well-approximated Wound Site: swollen, pink and no signs of infection Drainage: serosanguineous, crusted sanguinous drainage Flap site: well approximated and pink PLAN: Wound cleaned: normal saline and peroxide Dressing: vaseline dressing applied Culture obtained: No MD/PA-C consulted Yes. Dr. Nunes in to see patient and reassured that repair was healing well. FOLLOW UP Patient advised to return to follow-up care on 05/03/2022 as planned or sooner if concern Wound care instructions given to patient Note: I was supervised by Devon Nunes MD who was present and immediately available in the office suite. 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
== END 2023-11-01 20:26 | disposition home or self-care (01) ==
LOC: NCHCN 20:25
PROVIDERS: Visit Provider Family Medicine
DX: E78.00 Pure hypercholesterolemia, unspecified (principal); Z87.39 Personal history of other diseases of the musculoskeletal system and connective tissue; N18.31 Chronic kidney disease, stage 3a
CPT/HCPCS: 80053; 80061; 84550

== ENCOUNTER 2024-11-12 16:16 | Outpatient (REF) | payer MEDICARE, SELFPAY ==
[2024-11-12 21:42] LABS: ALT 21 U/L (16-63); AST 29 U/L (15-37); Albumin 3.6 g/dL (3.4-5.0); Alkaline Phosphatase 60 U/L (46-116); Anion Gap 10.3 mmol/L (3-11); BUN 28 mg/dL (7-18); Bilirubin, Total 0.7 mg/dL (0.2-1.0); CO2 27.7 mmol/L (21.0-32.0); Calcium 9.1 mg/dL (8.5-10.1); Chloride 103 mmol/L (98-107); Estimated GFR 60.21 (mL/min/1.73m2); Glucose 85 mg/dL (74-106); Potassium 4.0 mmol/L (3.5-5.1); Sodium 141 mmol/L (136-145); Total Protein 7.6 g/dL (6.4-8.2)
[2024-11-13 18:35] LABS: PSA, Screening 0.7 ng/mL (<=4.5)
== END 2024-11-12 16:17 | disposition home or self-care (01) ==
LOC: NCHCN 16:16
PROVIDERS: Visit Provider Family Medicine
DX: Z12.5 Encounter for screening for malignant neoplasm of prostate (principal)
CPT/HCPCS: 80053; 84153